=== PATIENT | female | born 1970 | race Caucasian/White ===

== ENCOUNTER → 2017-11-16 08:44 | Outpatient (CLI) | payer OTHER, SELFPAY ==
--- NOTE | 2017-11-16 08:50 | FL_ITS ---
EXAM: Barium swallow/esophagram. INDICATION: ITS.REASON: difficulty swallowing ORDERING PHYSICIAN: Sunny Kerns MD PATIENT AGE: 47 years COMPARISON: None TECHNIQUE: In the upright position the patient was observed to swallow barium in both the AP and lateral view. The cervical esophagus was examined under fluoroscopy with images obtained. The patient was then placed prone in the right anterior oblique position and was observed to swallow barium with Valsalva technique . FLUOROSCOPY TIME: 53 seconds FINDINGS: There was no evidence of aspiration. There was normal peristalsis. No filling defects or mucosal abnormalities. No masses or strictures. The esophagus is midline IMPRESSION: Negative barium swallow.
== END ==
PROVIDERS: Family Provider Family Medicine; PCP Family Medicine; Visit Provider Otolaryngology
DX: R13.10 Dysphagia, unspecified (principal)
CPT/HCPCS: 74220